=== PATIENT | male | born 1980 | race Two or more races ===

== ENCOUNTER → 2025-03-30 | Outpatient (CLI) | payer OTHER, SELFPAY ==
--- NOTE | 2025-03-30 12:00 | XR_ITS ---
MRI shoulder, right, without contrast. Date and time: March 30, 2025, 12:27 p.m. INDICATIONS: Injury to the shoulder 4 months ago with shoulder pain numbness paresthesias joint clicking Technique: Multiple axial, sagittal and coronal sections of the shoulder have been obtained. Siemens high-resolution 1.5 [employer] MRI scanner is utilized. Axial fat-suppressed sections, TR 2350, TE 18 T2-weighted coronal fat-saturated images, TR 3500, TE 7100 T1-weighted coronal images, TR 500, TE 15 T2-weighted sagittal fat-saturated images, TR 3500, TE 57 T1-weighted sagittal sections, TR 504, TE 13. Findings: Supraspinatus tendon insertion is intact. Infraspinatus tendon insertion is intact. Subscapularis insertion is intact. Subscapularis bursa is not seen. Long head of the biceps is in the bicipital groove. No definite tear of the biceps superior labral anchor is seen. Retraction of the musculotendinous junction of the rotator cuff is not seen . Tendinosis pattern is prominent. Distance between the acromium and humeral head is 5.3 mm Atrophy of the supraspinatus muscle is mild . Atrophy of the infraspinatus muscle is mild. Sagittal sections demonstrate a horizontal acromion. Acromioclavicular joint demonstrates moderate osteoarthritis. Osacromiale is not identified. Anterior superior posterior labral tears. Bony glenoid fossa on the sagittal sections does not demonstrate osseous defect. Occult fracture or area of avascular necrosis is not seen. Acromioclavicular joint separation is not visible. Defect in the posterolateral margin of the humeral head is not seen Impression: Rotator cuff intact Prominent rotator cuff tendinosis Anterior superior posterior labral tears
== END | disposition home or self-care (01) ==
LOC: SMRI 11:58
PROVIDERS: Referring Provider Specialist; Visit Provider Specialist
DX: S43.431A Superior glenoid labrum lesion of right shoulder, initial encounter (principal); X58.XXXA Exposure to other specified factors, initial encounter; M67.813 Other specified disorders of tendon, right shoulder
CPT/HCPCS: 73221